=== PATIENT | male | born 1950 | race Caucasian/White ===

== ENCOUNTER → 2017-07-13 07:08 | Outpatient (CLI) | payer MEDICARE, SELFPAY ==
[2017-07-13 08:51] LABS: AST(SGOT) 20 U/L (15-37); Alanine Aminotransfer ALT/SGPT 29 U/L (16-61); Albumin, Serum 3.5 g/dL (3.2-5.0); Alkaline Phosphatase 100 U/L (45-117); Bilirubin, Direct 0.16 mg/dL (0.00-0.30); Cholesterol 165 mg/dL (200); Globulin 3.6 g/dL (2.2-4.2); High Density Lipoprotein 31 mg/dL; Protein, Total 7.1 g/dL (6.4-8.2); Triglycerides 192 mg/dL; Very Low Density Lipoprotein 38 mg/dL (5-40)
== END ==
PROVIDERS: Family Provider Internal Medicine; PCP Internal Medicine; Visit Provider Internal Medicine Cardiovascular Disease
DX: E78.5 Hyperlipidemia, unspecified (principal)
CPT/HCPCS: 36415; 80061; 80076

== ENCOUNTER → 2017-10-29 18:01 | Outpatient (CLI) | payer MEDICARE, SELFPAY ==
--- NOTE | 2017-10-29 09:00 | COLBX_PTH ---
PATIENT: ROMEL HARRIS LOC: [facility] U#:[id number] AGE/SX: 74/M ROOM: RE10/29/[address]: Dr. Kin Esparza MD : [id number] BED: DIS: SPEC #: [id number] RECD: 10/29/17 15:37 STATUS: NADINE NIKKY #: [id number] SARAH: 10/29/17 09:[address]: Kin Esparza DEPT: SURGICAL PATHOLOGY RECD BY: Shayne Mckinnon ENTERED: 11/01/17 07:26 SP TYPE: COLON BX OTHR DR: Dr. Anat Reed MD [facility] Tissues: Sigmoid colon biopsy Procedures: Surgery Specimen Level IV HEADER OPERATION: Colonoscopy with biopsies PRE-OP DIAGNOSIS: Screening/poly TISSUE SUBMITTED: Distal sigmoid polyp biopsies, rule out adenoma MICROSCOPIC DIAGNOSIS Distal sigmoid polyp, biopsy: Fragments of tubular adenoma. SJ:roger 11/02/17 MICROSCOPIC DESCRIPTION Slides are reviewed. GROSS DESCRIPTION Received in fixative is one container labeled with the patient's name and designated distal sigmoid polyp biopsy. The specimen consists of multiple irregular fragments of light grimm soft tissue that in aggregate measure 0.5 x 0.2 x 0.1 cm. The specimen is totally submitted in one cassette. / SJ:roger 11/01/17 TC:1 CPT: 87700
== END ==
PROVIDERS: Family Provider Internal Medicine; PCP Internal Medicine; Visit Provider Internal Medicine Gastroenterology
DX: Z12.11 Encounter for screening for malignant neoplasm of colon (principal); D12.5 Benign neoplasm of sigmoid colon
CPT/HCPCS: 88305

== ENCOUNTER → 2018-07-27 08:45 | Outpatient (CLI) | payer MEDICARE, SELFPAY ==
[2017-07-13 13:23] VITALS: BMI 30.4
[2018-07-27 09:51] LABS: AST(SGOT) 17 U/L (15-37); Alanine Aminotransfer ALT/SGPT 34 U/L (16-61); Albumin, Serum 3.8 g/dL (3.2-5.0); Alkaline Phosphatase 100 U/L (45-117); Bilirubin, Direct 0.21 mg/dL (0.00-0.30); Cholesterol 173 mg/dL (200); Globulin 3.3 g/dL (2.2-4.2); High Density Lipoprotein 33 mg/dL; Protein, Total 7.1 g/dL (6.4-8.2); Triglycerides 235 mg/dL; Very Low Density Lipoprotein 47 mg/dL (5-40)
== END ==
PROVIDERS: Family Provider Internal Medicine; PCP Internal Medicine; Referring Provider Internal Medicine Cardiovascular Disease; Visit Provider Internal Medicine Cardiovascular Disease
DX: E78.5 Hyperlipidemia, unspecified (principal); Z79.899 Other long term (current) drug therapy
CPT/HCPCS: 36415; 80061; 80076

== ENCOUNTER → 2018-08-17 14:55 | Outpatient (CLI) | payer MEDICARE, SELFPAY ==
[2018-07-28 11:28] VITALS: BMI 30.9
--- NOTE | 2018-08-17 14:57 | ECHOD_ITS ---
Reason For Study: Bicuspid AV Procedure This was a 2D Doppler, Color Flow transthoracic echocardiogram. Exam performed in department. Left Ventricle Normal LV size. Moderate concentric left ventricular hypertrophy. Left ventricular systolic function is normal. The estimated ejection fraction is 55 %. No evidence for diastolic dysfunction. No regional wall motion abnormalities noted. Right Ventricle Normal RV size. Normal systolic function. Atria The left atrium is moderately enlarged. The right atrium is mildly enlarged. Mitral Valve Normal mitral valve. Tricuspid Valve Normal tricuspid valve. Mild tricuspid valve insufficiency. Pulmonary artery systolic pressure is 30 mmHg. Aortic Valve Peak aortic valve gradient 37 mmHg. Mean aortic valve gradient 20 mmHg. Bioprosthetic aortic valve. Pericardium/Pleural No pericardial effusion. MMode/2D Measurements & Calculations LVIDd: 4.6 cm IVSd: 1.6 cm LVOT diam: 2.0 cm LVIDs: 3.1 cm LVPWd: 1.2 cm LVOT area: 3.1 cm2 RVDd: 4.1 cm FS: 31.8 % LA dimension: 3.7 cm LAV(MOD-bp): 103.1 ml LA A4 area: 34.7 cm2 LAV(MOD-bp) Indexed: 45.5 ml/m2 LAV(MOD-sp2): 79.7 ml LAV(MOD-sp4): 129.0 ml RA A4 area: 27.4 cm2 Time Measurements MV dec time: 0.24 sec Doppler Measurements & Calculations MV E max raman: 73.2 cm/sec Lat Peak E' Raman: 13.1 cm/sec Med Peak E' Raman: 7.4 cm/sec MV A max raman: 63.0 cm/sec E/E' lat: 5.6 E/E' med: 9.9 MV E/A: 1.2 MV V2 max: 69.9 cm/sec MV P1/2t max raman: 69.2 cm/sec Ao V2 max: 303.4 cm/sec MV max P.0 mmHg MV P1/2t: 134.5 msec Ao max P.8 mmHg MV V2 mean: 42.6 cm/sec Ao V2 mean: 206.7 cm/sec MV mean P.82 mmHg MV dec slope: 150.8 cm/sec2 Ao mean P.5 mmHg MV V2 VTI: 25.5 cm MVA(P1/2t): 1.6 cm2 Ao V2 VTI: 66.0 cm MVA(VTI): 2.6 cm2 NELLI(I,D): 1.0 cm2 NELLI(V,D): 0.95 cm2 LV V1 max: 93.6 cm/sec SV(LVOT): 66.4 ml TR max raman: 250.0 cm/sec LV V1 max P.5 mmHg TR max P.0 mmHg LV V1 mean P.8 mmHg LV V1 mean: 62.3 cm/sec LV V1 VTI: 21.6 cm Interpretation Summary Normal LV size. Moderate concentric left ventricular hypertrophy. Left ventricular systolic function is normal. The estimated ejection fraction is 55 %. No evidence for diastolic dysfunction. Bioprosthetic aortic valve. Mean aortic valve gradient 20 mmHg. Compared to the previous the AV has been replaced Ordering Physician: Husam Lane Referring Physician: Husam Lane Performed By: Corwin Tucker RCS
== END ==
PROVIDERS: Family Provider Internal Medicine; PCP Internal Medicine; Referring Provider Internal Medicine Cardiovascular Disease; Visit Provider Internal Medicine Cardiovascular Disease
DX: Z98.890 Other specified postprocedural states (principal)
CPT/HCPCS: 93306

== ENCOUNTER → 2019-07-26 09:21 | Outpatient (CLI) | payer MEDICARE, SELFPAY ==
[2018-07-28 11:28] VITALS: BMI 30.9
[2019-07-26 11:45] LABS: AST(SGOT) 20 U/L (15-37); Alanine Aminotransfer ALT/SGPT 40 U/L (16-61); Albumin, Serum 3.8 g/dL (3.2-5.0); Alkaline Phosphatase 90 U/L (45-117); Bilirubin, Direct 0.15 mg/dL (0.00-0.30); Cholesterol 184 mg/dL (200); Globulin 3.2 g/dL (2.2-4.2); High Density Lipoprotein 35 mg/dL; Triglycerides 211 mg/dL; Very Low Density Lipoprotein 42 mg/dL (5-40)
== END ==
PROVIDERS: PCP Internal Medicine; Referring Provider Internal Medicine Cardiovascular Disease; Visit Provider Internal Medicine Cardiovascular Disease
DX: E78.5 Hyperlipidemia, unspecified (principal)
CPT/HCPCS: 36415; 80061; 80076

== ENCOUNTER → 2020-08-12 09:57 | Outpatient (CLI) | payer MEDICARE, SELFPAY ==
[2020-07-30 07:30] VITALS: BMI 30.9
--- NOTE | 2020-08-12 10:00 | ECHOD_ITS ---
Version 2 Reason For Study: VALVE REPLACEMENT EVAL Procedure This was a 2D Doppler, Color Flow transthoracic echocardiogram. Exam performed in department. Left Ventricle Normal LV size. Mild concentric left ventricular hypertrophy. Left ventricular systolic function is normal. The estimated ejection fraction is 55 %. Stage 1 diastolic dysfunction. Right Ventricle Normal RV size. Normal systolic function. Atria The left atrium is severely enlarged. The right atrium is moderately enlarged. Tricuspid Valve Normal tricuspid valve. Mild tricuspid valve insufficiency. Pulmonary artery systolic pressure is 26 mmHg. Aortic Valve Peak aortic valve gradient 27 mmHg. Mean aortic valve gradient 14 mmHg. Bioprosthetic aortic valve. Pulmonic Valve Normal pulmonic valve. Mild (1+) pulmonic valve insufficiency. MMode/2D Measurements & Calculations LVIDd: 5.1 cm IVSd: 1.2 cm Ao root diam: 3.3 cm LVIDs: 3.6 cm LVPWd: 1.2 cm RVDd: 3.4 cm FS: 30.7 % LAV(MOD-bp): 125.2 ml LA A4 area: 33.3 cm2 RA A4 area: 28.9 cm2 LAV(MOD-bp) Indexed: 54.3 ml/m2 LAV(MOD-sp2): 122.4 ml LAV(MOD-sp4): 121.6 ml Time Measurements MV dec time: 0.20 sec Doppler Measurements & Calculations MV E max raman: 53.1 cm/sec Lat Peak E' Raman: 6.6 cm/sec Med Peak E' Raman: 6.7 cm/sec MV A max raman: 66.9 cm/sec E/E' lat: 8.0 E/E' med: 7.9 MV E/A: 0.79 Ao V2 max: 261.8 cm/sec LV V1 max: 99.9 cm/sec PA V2 max: 105.3 cm/sec Ao max P.4 mmHg LV V1 max P.0 mmHg Ao V2 mean: 180.8 cm/sec LV V1 mean P.1 mmHg Ao mean P.3 mmHg LV V1 mean: 69.5 cm/sec Ao V2 VTI: 59.9 cm LV V1 VTI: 21.8 cm TR max arman: 239.2 cm/sec TR max P.9 mmHg Interpretation Summary Normal LV size. Left ventricular systolic function is normal. The estimated ejection fraction is 55 %. Mild concentric left ventricular hypertrophy. Stage 1 diastolic dysfunction. The left atrium is severely enlarged. The right atrium is moderately enlarged. Bioprosthetic aortic valve. Ordering Physician: Husam Lane Referring Physician: Anat Reed Performed By: Darby Reed, RDCS, RVT
== END ==
PROVIDERS: PCP Internal Medicine; Referring Provider Internal Medicine Cardiovascular Disease; Visit Provider Internal Medicine Cardiovascular Disease
DX: I35.1 Nonrheumatic aortic (valve) insufficiency (principal)
CPT/HCPCS: 93306

== ENCOUNTER → 2020-09-02 08:48 | Outpatient (CLI) | payer MEDICARE, SELFPAY ==
[2020-07-30 07:30] VITALS: BMI 30.9
[2020-09-02 10:04] LABS: Anion Gap 5 (5-15); BUN 19 mg/dL (7-18); BUN/Creat Ratio 17.6 RATIO (10-20); Calcium,Total 8.6 mg/dL (8.5-10.1); Chloride 106 mmol/L (98-107); Creatinine, Serum 1.08 mg/dL (0.70-1.30); EST Glomerular Filtration Rate 72 mL/min (>60); Est Glom Filt Rate - Afr Amer 87 mL/min (>60); Glucose 102 mg/dL (74-106); Potassium 3.9 mmol/L (3.5-5.1); Sodium Level 141 mmol/L (136-145)
== END ==
PROVIDERS: PCP Internal Medicine; Referring Provider Internal Medicine Cardiovascular Disease; Visit Provider Internal Medicine Cardiovascular Disease
DX: I10 Essential (primary) hypertension (principal)
CPT/HCPCS: 36415; 80048

== ENCOUNTER → 2021-05-28 08:11 | Outpatient (CLI) | payer MEDICARE, SELFPAY ==
[2021-05-28 09:52] LABS: AST(SGOT) 17 U/L (15-37); Alanine Aminotransfer ALT/SGPT 28 U/L (16-61); Albumin, Serum 3.6 g/dL (3.2-5.0); Alkaline Phosphatase 78 U/L (45-117); Bilirubin, Direct 0.09 mg/dL (0.00-0.30); Cholesterol 159 mg/dL (200); Globulin 3.1 g/dL (2.2-4.2); High Density Lipoprotein 33 mg/dL; Protein, Total 6.7 g/dL (6.4-8.2); Triglycerides 230 mg/dL; Very Low Density Lipoprotein 46 mg/dL (5-40)
== END ==
PROVIDERS: PCP Internal Medicine; Referring Provider Internal Medicine Cardiovascular Disease; Visit Provider Internal Medicine Cardiovascular Disease
DX: E78.00 Pure hypercholesterolemia, unspecified (principal)
CPT/HCPCS: 36415; 80061; 80076

== ENCOUNTER → 2022-03-16 | Outpatient (CLI) | payer MEDICARE, SELFPAY ==
--- NOTE | 2022-03-16 18:37 | STRESSREP_ITS ---
Stress Test Report Exercise myocardial perfusion stress test. 71-year-old male with a history of valvular heart disease and coronary artery disease. Stress protocol: Resting EKG demonstrates normal sinus rhythm with a rate of 60 bpm normal intervals are noted resting blood pressure is 120/70 mmHg. The patient exercised according to regular Reza protocol for a total duration of 6 minutes and 30 seconds. The maximum heart rate attained was 133 bpm which was 88% of max impacted heart rate the maximum workload was 8.5 metabolic equivalents. At rest there were no ST or T wave changes noted to suggest ischemia and at peak exercise upsloping ST changes were noted with did not meet the criteria for ischemia. Occasional premature ventricular complexes were noted the test was terminated due to hip pain. The peak blood pressure was 142/72 mmHg. Myocardial perfusion protocol. 14.7 mCi of technetium 99m sestamibi was injected at rest. The patient exerc ised according to regular Reza protocol and at peak exercise 44.3 mCi of technetium 99m sestamibi was injected stress images were obtained stress and rest images were reconstructed in comparing the short axis vertical long and horizontal long axis. Gated images were also obtained. Perfusion SPECT analysis: Review of the stress images demonstrate normal uptake of tracer noted in all areas of the myocardium. The resting images similar demonstrate normal uptake of tracer noted in all areas of the myocardium. No reversibility is noted to suggest ischemia no previous infarct is noted. Gated SPECT analysis: The gated ejection fraction is noted to be 64%. Conclusion: Normal exercise myocardial perfusion stress test at a moderate workload. Preserved ejection fraction.
== END | disposition home or self-care (01) ==
LOC: CVS 07:12
PROVIDERS: PCP Internal Medicine; Referring Provider Internal Medicine Cardiovascular Disease; Visit Provider Internal Medicine Cardiovascular Disease
DX: I25.10 Atherosclerotic heart disease of native coronary artery without angina pectoris (principal); R07.89 Other chest pain
CPT/HCPCS: 78452; 93017; A9500; A4216

== ENCOUNTER → 2022-12-01 | Outpatient (CLI) | payer MEDICARE, SELFPAY ==
[2022-12-01 10:13] LABS: AST(SGOT) 23 U/L (15-37); Alanine Aminotransfer ALT/SGPT 26 U/L (16-61); Albumin, Serum 3.6 g/dL (3.2-5.0); Alkaline Phosphatase 71 U/L (45-117); Bilirubin, Direct 0.18 mg/dL (0.00-0.30); Cholesterol 178 mg/dL (200); Globulin 3.1 g/dL (2.2-4.2); High Density Lipoprotein 36 mg/dL; Protein, Total 6.7 g/dL (6.4-8.2); Triglycerides 284 mg/dL; Very Low Density Lipoprotein 57 mg/dL (5-40)
== END | disposition home or self-care (01) ==
LOC: LAB 08:42
PROVIDERS: PCP Internal Medicine; Referring Provider Internal Medicine Cardiovascular Disease; Visit Provider Internal Medicine Cardiovascular Disease
DX: E78.00 Pure hypercholesterolemia, unspecified (principal)
CPT/HCPCS: 36415; 80061; 80076

== ENCOUNTER → 2023-07-07 | Outpatient (CLI) | payer MEDICARE, SELFPAY ==
[2023-07-07 12:49] LABS: AST(SGOT) 13 U/L (15-37); Alanine Aminotransfer ALT/SGPT 21 U/L (16-61); Albumin, Serum 3.3 g/dL (3.2-5.0); Alkaline Phosphatase 66 U/L (45-117); Bilirubin, Direct 0.25 mg/dL (0.00-0.30); Cholesterol 188 mg/dL (200); High Density Lipoprotein 33 mg/dL; Protein, Total 7.3 g/dL (6.4-8.2); Triglycerides 206 mg/dL; Very Low Density Lipoprotein 41 mg/dL (5-40)
== END | disposition home or self-care (01) ==
LOC: LAB 09:30
PROVIDERS: PCP Internal Medicine; Referring Provider Internal Medicine Cardiovascular Disease; Visit Provider Internal Medicine Cardiovascular Disease
DX: E78.00 Pure hypercholesterolemia, unspecified (principal)
CPT/HCPCS: 36415; 80061; 80076

== ENCOUNTER → 2023-08-13 | Outpatient (CLI) | payer MEDICARE, SELFPAY ==
--- NOTE | 2023-08-13 10:56 | ECHOD_ITS ---
Reason For Study: AFIB Procedure This was a 2D Doppler, Color Flow transthoracic echocardiogram. Exam performed in department. Left Ventricle Normal LV size. Left ventricular systolic function is normal. The estimated ejection fraction is 60 %. Stage 1 diastolic dysfunction. No regional wall motion abnormalities noted. Right Ventricle Normal RV size. Normal systolic function. Atria The left atrium is mildly enlarged. Normal right atrium. Patent foramen ovale. Mitral Valve Normal mitral valve. Tricuspid Valve Normal tricuspid valve. Mild tricuspid valve insufficiency. Pulmonary artery systolic pressure is 24 mmHg. Aortic Valve Peak aortic valve gradient 21 mmHg. Mean aortic valve gradient 13 mmHg. Bioprosthetic aortic valve. Pulmonic Valve Normal pulmonic valve. Great Vessels Normal aortic root. The pulmonary artery is normal size. Normal inferior vena cava. Pericardium/Pleural No pericardial effusion. Medication 22 gauge I.V. with prn adaptor inserted into right arm. Performed a rapid injection of agitated mix of 9 cc saline and 1cc air to assess for atrial septal defect. MMode/2D Measurements & Calculations LVIDd: 5.0 cm IVSd: 1.1 cm LVOT diam: 2.0 cm LVIDs: 3.4 cm LVPWd: 1.1 cm RVDd: 3.8 cm FS: 32.4 % LVOT area: 3.2 cm2 Ao root diam: 3.1 cm LAV(MOD-bp): 61.2 ml LVAd ap4: 37.3 cm2 LAV(MOD-bp) Indexed: 27.0 ml/m2 LVLd ap4: 8.5 cm LAV(MOD-sp2): 57.5 ml EDV(MOD-sp4): 135.1 ml LAV(MOD-sp4): 62.4 ml EDV(sp4-el): 138.1 ml LVAs ap4: 20.5 cm2 LVLs ap4: 6.9 cm ESV(MOD-sp4): 51.7 ml ESV(sp4-el): 51.5 ml EF(MOD-sp4): 61.8 % EF(sp4-el): 62.7 % SV(MOD-sp4): 83.4 ml SV(sp4-el): 86.6 ml LA A4 area: 24.0 cm2 LA dimension(2D): 3.2 cm RA A4 area: 21.2 cm2 TAPSE: 1.8 cm Time Measurements MV dec time: 0.25 sec Doppler Measurements & Calculations MV E max raman: 53.0 cm/sec Lat Peak E' Raman: 13.1 cm/sec Med Peak E' Raman: 8.8 cm/sec MV A max raman: 58.8 cm/sec E/E' lat: 4.1 E/E' med: 6.0 MV E/A: 0.90 Ao V2 max: 233.9 cm/sec LV V1 max: 149.7 cm/sec SV(LVOT): 104.3 ml Ao max P.9 mmHg LV V1 max P.0 mmHg Ao V2 mean: 169.7 cm/sec LV V1 mean P.5 mmHg Ao mean P.0 mmHg LV V1 mean: 97.6 cm/sec Ao V2 VTI: 48.9 cm LV V1 VTI: 32.6 cm AV (velocity ratio): 0.67 NELLI(I,D): 2.1 cm2 NELLI(V,D): 2.0 cm2 PA V2 max: 92.4 cm/sec TR max raman: 223.6 cm/sec TR max P.0 mmHg ECHO/Echo Complete Interpretation Summary Normal LV size. Left ventricular systolic function is normal. The estimated ejection fraction is 60 %. Patent foramen ovale. Stage 1 diastolic dysfunction. The left atrium is mildly enlarged. Mean aortic valve gradient 13 mmHg. Bioprosthetic aortic valve. Compared to the previous the above is essentially unchanged. Ordering Physician: Husam Lane Referring Physician: DERRICK QUICK Performed By: Gabriella Amin RDCS
== END | disposition home or self-care (01) ==
PROVIDERS: PCP Internal Medicine; Referring Provider Internal Medicine Cardiovascular Disease; Visit Provider Internal Medicine Cardiovascular Disease
DX: I48.0 Paroxysmal atrial fibrillation (principal)
CPT/HCPCS: 93306

== ENCOUNTER 2024-07-08 09:52 | Emergency (ER) | payer MEDICARE, SELFPAY ==
[2024-07-08] VITALS (7 sets, daily range): BP systolic 112–183; BP diastolic 71–118; PULSE 55–86; RESP 15–19; TEMP 36.2–36.3; O2SAT 91–98; BMI 32.8
--- NOTE | 2024-07-08 10:08 | EKG12_ITS ---
Test Reason : Blood Pressure : */* mmHG Vent. Rate : 54 BPM Atrial Rate : 54 BPM P-R Int : 166 ms QRS Dur : 104 ms QT Int : 450 ms P-R-T Axes : 7 41 17 degrees QTcB Int : 426 ms Sinus bradycardia RSR' or QR pattern in V1 suggests right ventricular conduction delay ST & T wave abnormality, consider anterolateral ischemia Abnormal ECG Confirmed by HORACIO ROSALES, NI ([id number]), industrial editor MADHU LARA ([id number]) on 07/11/2024 6:11:13 AM Referred By: Confirmed By: NI LEONARD MD
--- NOTE | 2024-07-08 10:26 | CT_ITS ---
EXAM: CT ANGIOGRAPHY CHEST WITHOUT AND WITH INTRAVENOUS CONTRAST CLINICAL INDICATION: Chest pain, HISTORY OF VALVE REPAIR TECHNIQUE: Helically acquired angiography images were obtained of the chest without and with intravenous contrast. This CT exam was performed using one or more of the following dose reduction techniques: automated exposure control, adjustment of the mA and/or kV according to patient size, and/or use of iterative reconstruction technique. MIP reconstructed images were created and reviewed. CONTRAST: IV 100mL Isovue-370 RADIATION DOSE: CTDIvol = 17.56 mGy, DLP = 1468.38 mGy-cm COMPARISON: CTA chest 12/26/2014. FINDINGS: PULMONARY ARTERIES: Unremarkable. Normal in caliber. No evidence of pulmonary embolism. 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 There is improvement of the ascending aortic aneurysm following aortic valvular repair with aortic valve prosthesis in place. GREAT VESSELS OF AORTIC ARCH: Unremarkable. Normal in caliber. No evidence of dissection. LUNGS AND PLEURAL SPACES: Unremarkable. No mass. No consolidation or edema. No pleural effusion or thickening. No pneumothorax. HEART: Unremarkable. Heart size is normal. No pericardial effusion. No significant coronary artery calcifications. MEDIASTINUM: Unremarkable. No mediastinal or hilar adenopathy. Esophagus is unremarkable. No hiatal hernia. THYROID: Unremarkable. No thyroid lesions. BONES/JOINTS: Unremarkable. No suspicious lytic or blastic abnormality. UPPER ABDOMEN: Marked elevation of the left hemidiaphragm,. CT/CTA Chest W/WO Contrast IMPRESSION: 1. 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 This is a new finding. 2. Interval improvement of ascending aortic aneurysm following aortic valvular repair with aortic valvular metallic prosthesis in place. 3. Marked elevation of the left hemidiaphragm is a chronic finding. 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 4. Normal aortic origin of the great vessels. N.B. : The above Results were Read Back by Mickey Canas MD to Iker Guajardo DO, and understanding confirmed on 07/08/2024 11:35:07 (ET). Electronically Signed: Mickey Canas MD at 11:38 EST ,
--- NOTE | 2024-07-08 10:28 | ED.VIS.CHEST ---
HPI History of Present Illness Chief Complaint: Chest Pain Informant: patient Onset/Context/Timing Onset: Today Activity at onset: sudden Timing: Continuous Quality: Positive for Tightness Location: Substernal Worsened By: Movement of Torso (Bending forward) Relieved By: Nothing Associated Symptoms: Negative for Nausea, Vomiting, Diaphoresis, Dyspnea, Cough, Fever, Lightheadedness, Acid Reflux or Palpitations Narrative Narrative: Patient presents with chest pain that began this morning. Patient states he noticed the pain when he woke up today. Patient states it began rather suddenly. Patient describes it as a tightness. Patient states that it was worse when he bent forward. Patient states he got out of bed and took a regular strength aspirin. Patient states it is mainly over the lower substernal area. Patient denies any nausea or vomiting. Patient denies any shortness of breath or cough. Patient denies any diaphoresis. Patient denies any fevers or chills. CVD Risk Factors: Positive for Hypertension and Hypercholesterolemia; Negative for Diabetes, Family History 1' </=55 or Smoking PE Risk Factors: Positive for Cancer; Negative for Recent Travel/Surgery, Recent Immobilization, Prior DVT or PE or OCP + Smoking + >/=35 PFSH [facility] Medical History Hypothyroidism Aortic root aneurysm Essential (primary) hypertension Hyperlipidemia Nonrheumatic aortic (valve) insufficiency H/O bicuspid aortic valve Paroxysmal atrial fibrillation Home Medications ?Medication ?Instructions ?Recorded ?Last Taken ?Type brimonidine 0.15 % eye drops 1 drp EACH EYE DAILY 06/01/14 Unknown History latanoprost 0.005 % eye drops 1 drp EACH EYE QHS 06/01/14 Unknown History amoxicillin 500 mg tablet 2,000 mg (4 x 500 mg) PO ONCE PRN 07/30/20 Unknown Rx AVR #8 tabs aspirin 81 mg tablet,delayed 81 mg PO DAILY 07/30/20 Unknown History release (Adult Low Dose Aspirin) B-complex with vitamin C 1 tab PO DAILY 03/03/22 Unknown History ascorbate calcium (vitamin C) 500 500 mg PO DAILY 03/03/22 Unknown History mg tablet calcium carbonate (Calcium 600) 600 mg PO DAILY 03/03/22 Unknown History cholecalciferol (vitamin D3) 125 125 mcg PO DAILY 03/03/22 Unknown History mcg (5,000 unit) capsule echinacea 380 mg capsule 380 mg PO DAILY 03/03/22 Unknown History ginkgo biloba 40 mg tablet 120 mg PO DAILY 03/03/22 Unknown History vitamin E (dl, acetate) 180 mg 180 mg PO DAILY 03/03/22 Unknown History (400 unit) capsule levobunolol 0.5 % eye drops 1 drp EACH EYE BID 12/01/22 Unknown History doxazosin 4 mg tablet (Cardura) 4 mg PO DAILY #90 tabs 09/30/23 Unknown Rx lovastatin 20 mg tablet 20 mg PO DAILY #90 tabs 10/11/23 Unknown Rx spironolactone 25 mg tablet 25 mg PO DAILY #90 tabs 11/01/23 Unknown Rx amlodipine 10 mg tablet 10 mg PO QDAY #90 tabs 11/09/23 Unknown Rx metoprolol succinate 50 mg 50 mg PO DAILY #90 tabs 11/18/23 Unknown Rx tablet,extended release 24 hr ramipril 10 mg capsule (Altace) 10 mg PO DAILY #180 caps 02/17/24 Unknown Rx enzalutamide 80 mg tablet (Xtandi) 80 mg PO Q24H 07/08/24 Unknown History levothyroxine 137 mcg tablet 137 mcg PO DAILY disorder of 07/08/24 Unknown History thyroid gland Allergy/AdvReac Type Severity Reaction Status Date / Time fenofibrate (From Tricor) AdvReac Severe Joint pain Verified 07/08/24 10:02 and dizziness hydrochlorothiazide AdvReac Severe GOUT Verified 07/08/24 10:02 Surgical History History of cholecystectomy History of arthroscopy of shoulder History of thyroidectomy History of aortic root repair (04/14/16) History of left heart catheterization (04/02/16) History of aortic valve replacement (04/14/16) Social History Smoking Status: Never smoker alcohol intake: current alcohol intake frequency: holidays/special occasions only substance use type: does not use caffeine: Yes Type: carbonated beverages Number of servings: 1 ROS ROS ED Constitutional Constitutional ED: Denies chills or fever(s) Eyes Eyes: Denies blurry vision or change in vision ENT ENT ED: Denies rhinorrhea or sore throat Cardiovascular Cardiovascular: Reports chest pain; Denies palpitations Respiratory/Chest Respiratory/Chest: Denies cough or dyspnea Gastrointestinal Gastrointestinal: Denies nausea or vomiting Genitourinary Genitourinary ED: Reports urinary frequency; Denies dysuria or hematuria Musculoskeletal Musculoskeletal: Denies back pain or neck pain Integumentary Denies abscess or rash Neurologic Neurologic: Denies headache(s) or weakness Allergic/Immunologic Allergic/Immunologic ED: Denies mouth swelling or urticaria EXAM Physical Exam Const Vital Signs: 07/08/24 09:53 07/08/24 10:01 07/08/24 10:09 Temperature 97.2 F L Temperature Source Oral Pulse Rate 63 Respiratory Rate 19 H Respiratory Effort Normal Non-Labored Blood Pressure 179/92 H Blood Pressure Mean 121 Pulse Ox 98 92 Oxygen Delivery Method Room Air Room Air 07/08/24 11:05 07/08/24 11:11 07/08/24 11:17 Temperature Temperature Source Pulse Rate 86 55 L 62 Respiratory Rate 15 Respiratory Effort Blood Pressure 183/118 H 123/88 H 177/71 H Blood Pressure Mean 139 Pulse Ox 94 Oxygen Delivery Method Room Air 07/08/24 11:40 Temperature Temperature Source Pulse Rate 59 L Respiratory Rate 17 Respiratory Effort Blood Pressure 112/76 Blood Pressure Mean 88 Pulse Ox 91 Oxygen Delivery Method Room Air Positive well nourished and well developed General Appearance ED: well developed and NAD HEENT Reports moist mucous membranes Neck supple and no JVD Chest Wall inspection of chest normal and palpation of chest normal Resp normal respiratory effort and clear to auscultation bilaterally Cardio regular rate and regular rhythm GI soft to palpation, non-tender and non-distended Back/Spine Back/Spine Narrative: There is mild tenderness over the right lumbar paraspinal area. There is no edema or ecchymosis. There is no bony crepitance or step-off noted. Neuro oriented x3, CN's II-XII intact bilaterally and no sensory deficits noted Sensorium / Orientation: awake and alert Motor Exam: strength 5/5 throughout Psych mental status grossly normal Heart Score History: Slightly/Non-Suspicious ECG: Nonspecific Repolarization Age: >/= 65 years Risk Factors: 1 or 2 Risk Factors Troponin: </= Normal Limit Score: 4 MDM MDM MDM Narrative Medical decision making narrative: Differential diagnosis includes cardiac dysrhythmia, cardiac ischemia, electrolyte abnormality, pneumonia, pulmonary embolism, aortic dissection, pneumothorax, musculoskeletal pain, and anxiety. EKG will be obtained to assess for cardiac dysrhythmia and cardiac ischemia. CTA of the chest will be obtained to assess for pulmonary embolism and aortic dissection. CBC will be obtained to assess for leukocytosis and anemia. Basic metabolic profile will be obtained to assess for electrolyte abnormality and renal function. High-sensitivity troponin will be obtained to assess for cardiac ischemia. 2-hour repeat high-sensitivity troponin will be obtained to assess for ongoing cardiac ischemia. Lab Data Attestation: I reviewed the patient's lab results. Lab results narrative: CBC was reviewed and was within normal limits. Basic metabolic profile was reviewed and was within normal limits. High-sensitivity troponin was reviewed and was normal at 26. Labs: Laboratory Results - last 24 hr 07/08/24 10:05 WBC 4.3 L RBC 4.53 L Hgb 14.4 Hct 40.7 MCV 89.8 MCH 31.8 MCHC 35.4 RDW Std Deviation 39.2 RDW Coeff of Cassi 12.2 Plt Count 159 MPV 10.4 Immature Gran % (Auto) 0.900 Neut % (Auto) 76.0 H Lymph % (Auto) 12.1 L [place] % (Auto) 7.7 Eos % (Auto) 2.8 Baso % (Auto) 0.5 Absolute Neuts (auto) 3.3 Absolute Lymphs (auto) 0.52 L Nucleated RBC % 0 Sodium 143 Potassium 3.4 L Chloride 107 Carbon Dioxide 31.0 Anion Gap 5 BUN 16 Creatinine 1.02 Estim Creat Clear Calc 86.28 Est GFR (MDRD) Af Amer 92 Est GFR (MDRD) Non-Af 76 BUN/Creatinine Ratio 15.7 Glucose 104 Calcium 9.6 Troponin I High Sens 26 Radiography Diagnostic Testing: Clinical Impression(s) from Imaging Studies Chest CTA 07/08/24 10:26 IMPRESSION: 1. 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 This is a new finding. 2. Interval improvement of ascending aortic aneurysm following aortic valvular repair with aortic valvular metallic prosthesis in place. 3. Marked elevation of the left hemidiaphragm is a chronic finding. 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 4. Normal aortic origin of the great vessels. N.B. : The above Results were Read Back by Mickey Canas MD to Iker Guajardo DO, and understanding confirmed on 07/08/2024 11:35:07 (ET). Electronically Signed: Mickey Canas MD at 11:38 EST , ADDENDUM: 07/08/24 1145 IMPRESSION: 1. 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 This is a new finding. 2. Interval improvement of ascending aortic aneurysm following aortic valvular repair with aortic valvular metallic prosthesis in place. 3. Marked elevation of the left hemidiaphragm is a chronic finding. 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 4. Normal aortic origin of the great vessels. N.B. : The above Results were Read Back by Mickey Canas MD to Iker Guajardo DO, and understanding confirmed on 07/08/2024 11:35:07 (ET). Electronically Signed: Mickey Canas MD at 11:38 EST , CTA of the chest was obtained. There is a type B acute dissection of the thoracic aorta extending from the posterior transverse thoracic aorta and terminating in the upper abdomen just above the iliac artery. There are no other acute abnormalities noted. This was interpreted by the radiologist and was also independently reviewed by myself. EKG Initial EKG: Attestation: I personally reviewed and interpreted this EKG as follows: Interpretation: Sinus Bradycardia (54) and Inverted T-Waves Comments: EKG was obtained. On my independent interpretation, shows sinus bradycardia with a rate of 54. [place] interval was normal at 166 ms. QRS interval was normal at 104 ms. QTc interval was normal at 426 ms. [place] was normal. There are T wave inversions in leads V3, V4, and V5. These are new compared to stress test from 03/16/2022. Prior EKG tracings: available for review Prior: Changed (Compared to the stress report from 03/16/2022, there are new T wave inversions in leads V3, V4, and V5.) Management Discussion w/another healthcare provider: Compensation Expert and Radiologist Treatment and Re-Evaluation :: Patient was given nitroglycerin here. Patient's blood pressure improved after this. Patient was ordered labetalol however, this was held due to blood pressure being 112/76. Patient is resting comfortably sitting up in a chair. Patient and family were advised of his findings. Patient had his aortic root repaired at [facility] and normally follows with cardiothoracic surgery there. [facility] was called. Case was discussed with vascular surgery and critical care. Patient was accepted to service of Dr. Burgess. Critical Care Time Critical Care Time: Yes Critical care time (excluding procedures): 30-74 minutes (38), Including time spent:, Discussing w/Patient &/or Family/Transaction Processor, Discussing w/Consultants, Arranging Admission or Transfer and Performing Direct Patient Care at Bedside Discharge Plan Triage Chief Complaint: Chest Pain ED Provider: Iker Guajardo Dx/Rx/DC Orders Clinical Impression: Aortic dissection, thoracic, History of aortic valve replacement, Essential (primary) hypertension, H/O bicuspid aortic valve Prescriptions: No Action aspirin [Adult Low Dose Aspirin] 81 mg tablet,delayed release (DR/EC) 81 mg PO DAILY Patient Comments: 81 mg PO Chewable Tabs, 2 tabs by mouth QD amoxicillin 500 mg tablet 2,000 mg PO ONCE PRN (Reason: AVR) Qty: 8 2RF B-complex with vitamin C Tablet 1 tab PO DAILY ascorbate calcium (vitamin C) 500 mg tablet 500 mg PO DAILY cholecalciferol (vitamin D3) 125 mcg (5,000 unit) capsule 125 mcg PO DAILY calcium carbonate [Calcium 600] 600 mg calcium (1,500 mg) tablet 600 mg PO DAILY vitamin E (dl, acetate) 180 mg (400 unit) capsule 180 mg PO DAILY echinacea 380 mg capsule 380 mg PO DAILY Rx Instructions: administer with meals ginkgo biloba 40 mg tablet 120 mg PO DAILY Rx Instructions: give with meal/snack latanoprost 1 DROP bottle 1 drp EACH EYE QHS brimonidine 1 DROP bottle 1 drp EACH EYE DAILY levobunolol 0.5 % drops 1 drp EACH EYE BID Xtandi 80 mg tablet 80 mg PO Q24H Patient Comments: [NO ORIGINAL SIG] levothyroxine 137 mcg tablet 137 mcg PO DAILY doxazosin [Cardura] 4 mg tablet 4 mg PO DAILY Qty: 90 4RF lovastatin 20 mg tablet 20 mg PO DAILY Qty: 90 4RF spironolactone 25 mg tablet 25 mg PO DAILY Qty: 90 4RF amlodipine 10 mg tablet 10 mg PO QDAY Qty: 90 4RF metoprolol succinate 50 mg tablet extended release 24 hr 50 mg PO DAILY Qty: 90 3RF ramipril [Altace] 10 mg capsule 10 mg PO DAILY Qty: 180 4RF Primary Care Provider: Anat Reed Referrals: Anat Reed MD [Primary Care Provider] - Print Language: Japanese Disposition Disposition: Acute Care Hospital Discharge Location: [facility]
[2024-07-08 10:34] LABS: Absolute Lymphocyte Count 0.52 X10^3/uL (0.83-4.51); Absolute Neutrophil Count 3.3 X10^3/uL (2.0-7.7); Basophil# 0.02 X10^3/uL; Basophil% 0.5 % (0-1); Eosinophil# 0.12 X10^3/uL; Eosinophils% 2.8 % (0-5); Hematocrit 40.7 % (40-54); Hemoglobin 14.4 g/dL (13.0-16.5); Lymphocyte # 0.52 X10^3/ul (0.83-4.51); Lymphocyte % 12.1 % (19-41); Mean Corp Hgb Conc 35.4 g/dL (32-36); Mean Corpuscular Hgb 31.8 pg (27.0-32.0); Mean Corpuscular Volume 89.8 fL (80-94); Mean Platelet Vol. 10.4 fl (6.2-12.0); Monocyte# 0.33 X10^3/uL; Monocyte% 7.7 % (0-10); NRBC Flagged by Analyzer 0 % (0-5); Neutrophil # 3.28 X10^3/uL (2.7-7.7); POSITIVE DIFFERENTIAL YES; Platelet Count 159 K/mm3 (150-450); RBC Distribution Width CV 12.2 % (11.6-14.6); RBC Distribution Width SD 39.2 fl (35.1-43.9); Red Blood Count 4.53 M/mm3 (4.6-6.2); White Blood Count 4.3 K/mm3 (4.4-11.0)
[2024-07-08 10:37] LABS: Anion Gap 5 (5-15); BUN 16 mg/dL (7-18); BUN/Creat Ratio 15.7 RATIO (10-20); Calcium,Total 9.6 mg/dL (8.5-10.1); Chloride 107 mmol/L (98-107); Creatinine, Serum 1.02 mg/dL (0.70-1.30); EST Glomerular Filtration Rate 76 mL/min (>60); Est Glom Filt Rate - Afr Amer 92 mL/min (>60); Estimated Creatinine Clearance 86.28 ml/min; Glucose 104 mg/dL (74-106); Potassium 3.4 mmol/L (3.5-5.1); Sodium Level 143 mmol/L (136-145); Troponin-I HS (w/2H Reflex) 26 pg/mL (3.0-78.0)
[2024-07-08] MEDS: Nitroglycerin SL (ED/IMG/CATH) 0.4 MG TABLET SL ×2 (11:11→11:17)
[2024-07-08] MEDS: Morphine 4 MG/ML Syringe IV (12:06)
[2024-07-08 12:14] LABS: Reflex Troponin-HS? (from REC) Y
== END 2024-07-08 12:41 | disposition short-term general hospital (02) ==
PROVIDERS: Emergency Provider Emergency Medicine; PCP Internal Medicine; Visit Provider Emergency Medicine
DX: I71.21 Aneurysm of the ascending aorta, without rupture (principal); I48.0 Paroxysmal atrial fibrillation; R07.9 Chest pain, unspecified; E78.00 Pure hypercholesterolemia, unspecified; I10 Essential (primary) hypertension; Z95.2 Presence of prosthetic heart valve; Z79.82 Long term (current) use of aspirin; Z79.899 Other long term (current) drug therapy; E03.9 Hypothyroidism, unspecified; Z79.890 Hormone replacement therapy; Z90.49 Acquired absence of other specified parts of digestive tract
CPT/HCPCS: 71275; 80048; 84484; 85025; 93005; 96374; 99285; Q9967; A4216